=== PATIENT | female | born 1960 | race African-American/Black ===

== ENCOUNTER 2022-10-13 15:52 | Emergency (ER) | payer MEDICAID, OTHER ==
[~2022-10-13] VITALS: Ht 170.2 cm; Wt 99.0 kg
[2022-10-13 17:01] LABS: Basophils # (auto) 0 10 ^3/uL (0-0.2); Eosinophils # (auto) 0 10 ^3/uL (0-0.8); Eosinophils % (auto) 0.3 % (0.0-7.0)
[2022-10-13 17:06] LABS: Basophils % (auto) 0.5 % (0.0-2.0); Hematocrit 42.8 % (36.0-46.0); Hemoglobin 13.5 g/dL (12.2-16.2); Lymphocytes # (auto) 2.3 10 ^3/uL (0.4-5.4); Lymphocytes % (auto) 27.8 % (10.0-50.0); Mean Corpuscular Hemoglobin 22.4 pg (28.0-32.0); Mean Corpuscular Hgb Conc. 31.5 g/dL (32.0-36.0); Mean Corpuscular Volume 70.9 fL (80.0-100.0); Monocytes # (auto) 0.6 10 ^3/uL (0-1.3); Monocytes % (auto) 6.7 % (0.0-12.0); Neutrophils # (auto) 5.4 10 ^3/uL (1.6-8.6); Neutrophils % (auto) 64.7 % (37.0-80.0); Red Blood Cells 6.04 10^6/uL (4.0-5.20); Red Cell Distribution Width 15.6 % (11.8-14.3); White Blood Cell 8.3 10^3/uL (4.4-10.8)
[2022-10-13 17:19] LABS: INR 1.08 (0.9-1.15); Partial Thromboplastin Time 36.5 sec (24.6-33.4)
[2022-10-13 17:20] LABS: Alanine Aminotransferase 29 U/L (13-56); Albumin 3.7 g/dL (3.4-5.0); Anion Gap 8 (5-15); Aspartate Aminotransferase 17 U/L (15-37); BUN/Creatinine Ratio 13.1; Blood Urea Nitrogen 13 mg/dL (7-18); Calcium 10.1 mg/dL (8.5-10.1); Carbon Dioxide 25 mmol/L (21-32); Chloride 106 mmol/L (98-107); GFR African American 74 mL/min; GFR Non-African American 61 mL/min; Glucose 88 mg/dL (74-106); Potassium 4.3 mmol/L (3.5-5.1); Sodium 139 mmol/L (136-145)
[2022-10-13 17:23] LABS: Alkaline Phosphatase 108 U/L (45-117); Bilirubin, Total 0.4 mg/dL (0.2-1.0); Total Protein 7.6 g/dL (6.4-8.2)
[2022-10-13 21:15] VITALS: BP 149/94
== END 2022-10-13 21:32 | disposition home or self-care (01) ==
LOC: ER 15:52
DX: R07.89 Other chest pain (principal); Z88.8 Allergy status to other drugs, medicaments and biological substances
CPT/HCPCS: 36415; 71045; 80053; 84484; 85025; 85610; 85730; 93005

== ENCOUNTER 2023-07-19 17:55 | Inpatient (IN) | payer MEDICAID ==
[~2023-07-19] VITALS: Ht 170.2 cm; Wt 103.1 kg
[2023-07-19] MEDS: TAMSULOSIN HYDROCHLORIDE 0.4 MG CAP PO ONE (03:15)
[2023-07-19 19:30] LABS: Basophils # (auto) 0 10 ^3/uL (0-0.2); Eosinophils # (auto) 0 10 ^3/uL (0-0.8); Monocytes # (auto) 0.6 10 ^3/uL (0-1.3); Red Blood Cells 5.99 10^6/uL (4.0-5.20)
[2023-07-19 19:31] LABS: Basophils % (auto) 0.3 % (0.0-2.0); Hematocrit 43.2 % (36.0-46.0); Hemoglobin 13.5 g/dL (12.2-16.2); Lymphocytes # (auto) 1.3 10 ^3/uL (0.4-5.4); Lymphocytes % (auto) 11.8 % (10.0-50.0); Mean Corpuscular Hemoglobin 22.5 pg (28.0-32.0); Mean Corpuscular Hgb Conc. 31.2 g/dL (32.0-36.0); Monocytes % (auto) 5.2 % (0.0-12.0); Neutrophils # (auto) 9.4 10 ^3/uL (1.6-8.6); Neutrophils % (auto) 82.7 % (37.0-80.0); Nucleated Red Blood Cells % 0.2 %; Red Cell Distribution Width 16.2 % (11.8-14.3); White Blood Cell 11.4 10^3/uL (4.4-10.8)
[2023-07-19 19:39] LABS: Urine Bacteria FEW /hpf (None Seen); Urine Blood 3+ /uL (Negative); Urine Clarity Clear (Clear); Urine Color Yellow (Yellow); Urine Mucus FEW (None Seen); Urine Protein, UAD TRACE (Negative); Urine Specific Gravity 1.014 (1.001-1.035); Urine Urobilinogen Normal (Negative); Urine WBC 25 /hpf (0 - 5)
[2023-07-19 19:47] LABS: Alanine Aminotransferase 35 U/L (7-40); Albumin 5.3 g/dL (3.2-4.8); Alkaline Phosphatase 108 U/L (46-116); Anion Gap 9 (5-15); Aspartate Aminotransferase 19 U/L (13-40); BUN/Creatinine Ratio 9.1 (10.0-20.0); Blood Urea Nitrogen 10 mg/dL (9-23); Calcium 10.5 mg/dL (8.7-10.4); Carbon Dioxide 24 mmol/L (20-30); Chloride 110 mmol/L (98-107); Glucose 114 mg/dL (74-106); Lipase 34 U/L (12-53); Potassium 4.3 mmol/L (3.5-5.1); Sodium 143 mmol/L (136-145)
[2023-07-19 19:48] LABS: Bilirubin, Total 0.4 mg/dL (0.2-1.0); Total Protein 7.9 g/dL (5.7-8.2)
[2023-07-19 19:49] LABS: INR 1.02 (0.9-1.15); Partial Thromboplastin Time 28.1 SEC (24.5-34.5); Prothrombin Time 10.7 sec (9.3-11.8)
[2023-07-19] MEDS ORDERED: KETOROLAC TROMETH 30 MG/ML 1ML VIAL IV ONE (22:30)
[2023-07-19] MEDS ORDERED: levoFLOXacin 500MG 100 ML IV ONE (23:45)
[2023-07-20] MEDS ORDERED: ACETAMINOPHEN 325 MG TAB PO PRN (00:30)
[2023-07-20] MEDS ORDERED: TEMAZEPAM 15 MG CAP PO PRN (00:30)
[2023-07-20] MEDS ORDERED: MORPHINE SULFATE INJ 2 MG/ml SYRG IV PRN (00:30)
[2023-07-20] MEDS ORDERED: ONDANSETRON HCL 4 MG/2 ML VIAL IV PRN (00:30)
[2023-07-20] MEDS: TAMSULOSIN HYDROCHLORIDE 0.4 MG CAP PO ONE (03:26)
[2023-07-20 08:31] VITALS: O2SAT 99
[2023-07-20] MEDS: HYDROcodone-ACET 5/325MG TAB PO PRN ×3 (09:50→23:00)
[2023-07-20] MEDS ORDERED: PANTOPRAZOLE 40 MG TAB PO SCH (10:00)
[2023-07-20] MEDS ORDERED: CHOL20002 PO (10:46)
[2023-07-20 11:00] VITALS: BP 139/75; PULSE 83; RESP 20; TEMP 97.8; O2SAT 96
[2023-07-20 12:41] VITALS: BP 139/75; PULSE 83; RESP 20; TEMP 97.8; O2SAT 96
[2023-07-20 16:31] VITALS: BP 118/70; PULSE 66; RESP 20; TEMP 97.5; O2SAT 99
[2023-07-20] MEDS: cefTRIAXone 1GM/50ML D5W 50 ML IV SCH (21:19)
[2023-07-20 22:00] VITALS: BP 124/63; PULSE 73; RESP 18; TEMP 97.7; O2SAT 97
[2023-07-20] MEDS ORDERED: levoFLOXacin 500MG 100 ML IV SCH (22:00)
[2023-07-21 05:09] VITALS: BP 130/80; PULSE 70; RESP 18; TEMP 97.7; O2SAT 99
[2023-07-21] MEDS: HYDROcodone-ACET 5/325MG TAB PO PRN ×2 (05:14→17:16)
[2023-07-21 06:18] LABS: Chloride 110 mmol/L (98-107); Sodium 140 mmol/L (136-145)
[2023-07-21 06:19] LABS: Anion Gap 4 (5-15); Calcium 9.8 mg/dL (8.7-10.4); Carbon Dioxide 26 mmol/L (20-30)
[2023-07-21 06:24] LABS: BUN/Creatinine Ratio 8.9 (10.0-20.0); Blood Urea Nitrogen 9 mg/dL (9-23); Glucose 94 mg/dL (74-106)
[2023-07-21 06:34] LABS: Basophils # (auto) 0 10 ^3/uL (0-0.2); Eosinophils # (auto) 0.1 10 ^3/uL (0-0.8); Lymphocytes # (auto) 1.8 10 ^3/uL (0.4-5.4); Monocytes # (auto) 0.4 10 ^3/uL (0-1.3); Neutrophils # (auto) 2.4 10 ^3/uL (1.6-8.6); Nucleated Red Blood Cells % 0.1 %; White Blood Cell 4.7 10^3/uL (4.4-10.8)
[2023-07-21 06:39] LABS: Basophils % (auto) 0.3 % (0.0-2.0); Eosinophils % (auto) 1.3 % (0.0-7.0); Hematocrit 39.6 % (36.0-46.0); Hemoglobin 12.5 g/dL (12.2-16.2); Lymphocytes % (auto) 39.1 % (10.0-50.0); Mean Corpuscular Hemoglobin 23.1 pg (28.0-32.0); Mean Corpuscular Hgb Conc. 31.7 g/dL (32.0-36.0); Mean Corpuscular Volume 72.9 fL (80.0-100.0); Monocytes % (auto) 9.1 % (0.0-12.0); Neutrophils % (auto) 50.2 % (37.0-80.0); Red Blood Cells 5.42 10^6/uL (4.0-5.20); Red Cell Distribution Width 15.9 % (11.8-14.3)
[2023-07-21 08:17] VITALS: RESP 18; O2SAT 95
[2023-07-21 09:00] VITALS: BP 128/79; PULSE 67; RESP 16; TEMP 97.8; O2SAT 99
[2023-07-21] MEDS ORDERED: SODIUM CHLORIDE 0.9% 1,000 ML IV ONE (12:30)
[2023-07-21 13:00] VITALS: BP 150/79; PULSE 73; RESP 18; TEMP 98.9; O2SAT 95
[2023-07-21 17:00] VITALS: BP 129/74; PULSE 82; RESP 20; TEMP 97.5; O2SAT 96
[2023-07-21] MEDS ORDERED: TAMSULOSIN HYDROCHLORIDE 0.4 MG CAP PO SCH (18:00)
[2023-07-21] MEDS: cefTRIAXone 1GM/50ML D5W 50 ML IV SCH (20:15)
[2023-07-21 22:00] VITALS: BP 117/67; PULSE 68; RESP 22; TEMP 98; O2SAT 99
[2023-07-22 05:00] VITALS: BP 134/60; PULSE 77; RESP 22; TEMP 98.9; O2SAT 98
[2023-07-22 08:00] VITALS: PULSE 81; RESP 20; O2SAT 98
[2023-07-22 08:35] VITALS: BP 152/74; PULSE 81; RESP 20; TEMP 96.6; O2SAT 98
[2023-07-22] MEDS ORDERED: LEVO500T91 PO (11:44)
[2023-07-22 11:45] VITALS: BP 119/80; PULSE 77; RESP 20; TEMP 98.2; O2SAT 98
[2023-07-22] MEDS ORDERED: DOCUSATE SOD 100 MG CAP PO ONE (12:00)
[2023-07-22 13:39] VITALS: TEMP 36.8
[2023-07-22] MEDS ORDERED: DOCUSATE SOD 100 MG CAP PO SCH (22:00)
== END 2023-07-22 15:32 | disposition home or self-care (01) | DRG 720 ==
LOC: ER 17:55 → OVERFLOW 07-20 00:33 → WEST WING 07-20 10:42
PROVIDERS: ADMIT Nurse Practitioner; ATTEND Internal Medicine
DX: A41.9 Sepsis, unspecified organism (principal); N13.6 Pyonephrosis; Z88.0 Allergy status to penicillin; Z90.49 Acquired absence of other specified parts of digestive tract
CPT/HCPCS: 36415; 70450; 71045; 74176; 80048; 80053; 81001; 83605; 83690; 83735; 84484; 85025; 85610; 85730; 87040; 87086; 93005; G0378; J0696; J1885; J1956; J2405